=== PATIENT | female | born 1970 | race Caucasian/White ===

== ENCOUNTER → 2018-04-13 | Outpatient (CLI) | payer OTHER ==
[~2018-04-13] MED LIST: ACETAMINOPHEN-1 EAC1 PO; ASPIRIN EC325 M1; ASPIRIN EC325 M1 PO; ASPIRIN EC81 M1 PO; COLACE 100 MG100 MG PO; FLEXERIL PO; IBUPROFEN 800800 M1 PO; KEFLEX500 MG PO; LEVOXYL200 MCG; LEVOXYL25 MCG PO; NOHOMEMEDICATIONS; NORCO 5-325 TA1 EACH PO; NUCYNTA100 MG PO; NUCYNTA50 MG PO; PREDNISONE 10 M10 MG PO; ULTRAM 50MG TAB50 MG PO; XARELTO10 M1 PO; ZANTAC 7575 MG PO; [UNRECOGNIZED DRUG - OTHER]
== END ==
LOC: M.MRI 04-07 07:39
DX: M51.04 Intervertebral disc disorders with myelopathy, thoracic region (principal); M50.00 Cervical disc disorder with myelopathy, unspecified cervical region; M51.16 Intervertebral disc disorders with radiculopathy, lumbar region; R20.2 Paresthesia of skin; M25.78 Osteophyte, vertebrae; M51.06 Intervertebral disc disorders with myelopathy, lumbar region; E03.9 Hypothyroidism, unspecified; V89.2XXA Person injured in unspecified motor-vehicle accident, traffic, initial encounter

== ENCOUNTER → 2018-04-16 | Outpatient (CLI) | payer OTHER | LOC: M.MRI 08:00 | DX: M50.00 Cervical disc disorder with myelopathy, unspecified cervical region (principal); M51.16 Intervertebral disc disorders with radiculopathy, lumbar region; M51.04 Intervertebral disc disorders with myelopathy, thoracic region; E03.9 Hypothyroidism, unspecified; V28.9XXA Unspecified motorcycle rider injured in noncollision transport accident in traffic accident, initial encounter ==

== ENCOUNTER → 2019-04-06 | Outpatient (CLI) | payer OTHER | LOC: M.MRI 03-29 08:55 → M.NUC 10:31 → M.MRI 11:30 | DX: M25.561 Pain in right knee (principal); R60.0 Localized edema; Z96.651 Presence of right artificial knee joint ==

== ENCOUNTER → 2019-04-11 | Outpatient (CLI) | payer OTHER | LOC: M.MRI 17:12 | DX: M50.00 Cervical disc disorder with myelopathy, unspecified cervical region (principal); M40.292 Other kyphosis, cervical region ==

== ENCOUNTER → 2019-09-13 | Outpatient (CLI) | payer OTHER | LOC: M.CT 08:05 | DX: R10.9 Unspecified abdominal pain (principal) ==

== ENCOUNTER → 2020-03-07 | Outpatient (CLI) | payer OTHER ==
[~2020-03-07] MED LIST changes: +AMARYL2 MG PO; +BISOPROLOL-HCT1 EAC2 PO; +EUTHYROX88 MCG PO; +METFORMIN HCL500 MG PO; +SIMVASTATIN40 MG PO
[2020-03-07 12:35] LABS: ABSOLUTE BASOPHILS 0.1 thou/uL (0.0-0.2); ABSOLUTE EOSINOPHILS 0.1 thou/uL (0.0-0.7); ABSOLUTE LYMPHOCYTES 2.1 thou/uL (0.8-5.3); ABSOLUTE MONOCYTES 0.6 thou/uL (0.0-1.2); ABSOLUTE NEUTROPHILS 7.6 thou/uL (1.6-8.1); BASOPHILS 0.9 %; EOSINOPHILS 1.3 %; HEMATOCRIT 41.3 % (37.0-47.0); LYMPHOCYTES 19.5 %; MCH 28.6 pg (26.0-34.0); MCHC 33.9 g/dL (28.0-37.0); MCV 84.3 fL (80.0-100.0); MONOCYTES 6.1 %; MPV 7.3 fl. (7.2-11.1); NUCLEATED RBCS 0 /100WBC; PLATELET COUNT* 330 thou/uL (150-400); POLYS 72.2 %; RDW-CV 14.6 % (10.5-14.5); WBC 10.5 thou/uL (4.0-11.0)
[2020-03-07 12:49] LABS: APTT 24.9 Seconds (25.0-31.3); PROTIME 10.3 Seconds (9.20-11.50)
[2020-03-07 13:26] LABS: ALBUMIN 3.5 g/dL (3.4-5.0); CALCIUM 8.6 mg/dL (8.5-10.1); CREATININE 0.9 mg/dL (0.6-1.3); POTASSIUM 3.7 mmol/L (3.5-5.1); TOTAL BILIRUBIN 0.6 mg/dL (<0.1-1.0); TOTAL PROTEIN 7.8 g/dL (6.4-8.2)
[2020-03-07 13:46] LABS: ESR (SEDRATE) 17 mm/hr (0-30)
[2020-03-08 04:06] LABS: GLYCOHEMOGLOBIN (HGB A1C) 7.8 % (4.8-5.6)
--- NOTE | 2020-03-08 12:19 | EKG ---
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
== END ==
LOC: M.LAB 11:52
PROVIDERS: ATTEND Orthopaedic Surgery
DX: Z01.818 Encounter for other preprocedural examination (principal); Z01.812 Encounter for preprocedural laboratory examination; U07.1 COVID-19; M24.661 Ankylosis, right knee

== ENCOUNTER 2020-04-21 16:18 | Emergency (ER) | payer OTHER ==
[~2020-04-21] VITALS: Ht 154.9 cm; Wt 99.8 kg
[2020-04-21 17:02] LABS: ABSOLUTE BASOPHILS 0.1 thou/uL (0.0-0.2); ABSOLUTE EOSINOPHILS 0.3 thou/uL (0.0-0.7); ABSOLUTE LYMPHOCYTES 2.9 thou/uL (0.8-5.3); ABSOLUTE MONOCYTES 0.8 thou/uL (0.0-1.2); ABSOLUTE NEUTROPHILS 5.1 thou/uL (1.6-8.1); BASOPHILS 1.3 %; EOSINOPHILS 2.9 %; HEMATOCRIT 40.7 % (37.0-47.0); HEMOGLOBIN 13.8 gm/dL (12.0-15.0); LYMPHOCYTES 31.2 %; MCH 28.5 pg (26.0-34.0); MCV 83.9 fL (80.0-100.0); MONOCYTES 8.8 %; MPV 7.4 fl. (7.2-11.1); NUCLEATED RBCS 0 /100WBC; PLATELET COUNT* 326 thou/uL (150-400); POLYS 55.8 %; RBC 4.85 mil/uL (4.20-5.00); RDW-CV 14.6 % (10.5-14.5); WBC 9.2 thou/uL (4.0-11.0)
[2020-04-21 17:25] LABS: CALCIUM 9.4 mg/dL (8.5-10.1); CREATININE 0.9 mg/dL (0.6-1.3); POTASSIUM 4.1 mmol/L (3.5-5.1)
[2020-04-21 17:29] LABS: ALBUMIN 3.9 g/dL (3.4-5.0); TOTAL BILIRUBIN 0.4 mg/dL (<0.1-1.0); TOTAL PROTEIN 7.3 g/dL (6.4-8.2)
[2020-04-21] MEDS ORDERED: NORCO 5-325 TA1 EAC2 PO (17:32)
[2020-04-21] MEDS ORDERED: TRAMADOL 50 MG50 MG PO (17:49)
[2020-04-21 18:04] VITALS: BP 146/86
--- NOTE | 2020-04-22 12:13 | EKG ---
[place] [address] ELECTROCARDIOGRAM REPORT Name: JOSE BONDS Room: [facility]#: [id number] Admission: 04/21/20 Attend Phys: Discharge: 04/21/20 Date of : 68 Date of Service: 04/21/20 1638 Report #: [id number] THIS REPORT FOR: //name// [facility] ED Test Date: 2020-04-21 Test Time: 16:38:52 Pat Name: JOSE BONDS Department: Room: Gender: F Billing Customer Service Representative: ANTONIO : 1970 Requested By: Sophie Khanna Order Number: [id number] MD: Chilo Dang Measurements Intervals [place] Rate: 88 P: 19 LA: 136 QRS: 23 QRSD: 83 T: 114 QT: 373 QTc: 452 Interpretive Statements Sinus rhythm Probable left atrial enlargement Nonspecific T abnormalities, lateral leads Compared to ECG 05/16/2013 10:49:14 T-wave abnormality now present Left ventricular hypertrophy no longer present Electronically Signed On 04-22-2020 12:13:33 CDT by Chilo Dang [email or web address] <ELECTRONICALLY SIGNED> By: Chilo Dang MD, FAC 04/22/20 1213 1638 1638 Chilo Dang MD, LOCATED WITHIN [facility] /EPI
== END 2020-04-21 18:04 | disposition home or self-care (01) ==
LOC: M.ERS 16:18
PROVIDERS: Physician Assistant
DX: M25.511 Pain in right shoulder (principal); E03.9 Hypothyroidism, unspecified; E11.9 Type 2 diabetes mellitus without complications; E78.00 Pure hypercholesterolemia, unspecified; I10 Essential (primary) hypertension; G89.29 Other chronic pain; Z98.890 Other specified postprocedural states; Z96.651 Presence of right artificial knee joint; Z90.49 Acquired absence of other specified parts of digestive tract; Z88.5 Allergy status to narcotic agent; Z88.6 Allergy status to analgesic agent; Z88.8 Allergy status to other drugs, medicaments and biological substances

== ENCOUNTER → 2020-04-24 | Outpatient (CLI) | payer OTHER ==
[~2020-04-24] MED LIST changes: +NORCO 5-325 TA1 EAC2 PO; +TRAMADOL 50 MG50 MG PO
[2020-04-24 10:11] LABS: ABSOLUTE BASOPHILS 0.1 thou/uL (0.0-0.2); ABSOLUTE EOSINOPHILS 0.3 thou/uL (0.0-0.7); ABSOLUTE LYMPHOCYTES 1.5 thou/uL (0.8-5.3); ABSOLUTE MONOCYTES 0.5 thou/uL (0.0-1.2); EOSINOPHILS 3.7 %; HEMATOCRIT 38.4 % (37.0-47.0); HEMOGLOBIN 12.8 gm/dL (12.0-15.0); LYMPHOCYTES 20.5 %; MCH 28.2 pg (26.0-34.0); MCHC 33.5 g/dL (28.0-37.0); MCV 84.4 fL (80.0-100.0); MONOCYTES 6.5 %; MPV 7.2 fl. (7.2-11.1); NUCLEATED RBCS 0 /100WBC; PLATELET COUNT* 274 thou/uL (150-400); POLYS 68.3 %; RBC 4.55 mil/uL (4.20-5.00); RDW-CV 14.9 % (10.5-14.5); WBC 7.4 thou/uL (4.0-11.0)
[2020-04-24 10:17] LABS: APTT 26.6 Seconds (25.0-31.3); INR 0.9; PROTIME 9.7 Seconds (9.20-11.50)
[2020-04-24 11:14] LABS: ESR (SEDRATE) 28 mm/hr (0-30)
[2020-04-24 12:05] LABS: ALBUMIN 3.6 g/dL (3.4-5.0); CALCIUM 8.3 mg/dL (8.5-10.1); CREATININE 0.7 mg/dL (0.6-1.3); POTASSIUM 3.6 mmol/L (3.5-5.1); TOTAL BILIRUBIN 0.5 mg/dL (<0.1-1.0); TOTAL PROTEIN 7.2 g/dL (6.4-8.2)
== END ==
LOC: M.LAB 09:36
PROVIDERS: ATTEND Orthopaedic Surgery
DX: Z01.812 Encounter for preprocedural laboratory examination (principal); Z20.828 Contact with and (suspected) exposure to other viral communicable diseases; M24.661 Ankylosis, right knee

== ENCOUNTER → 2020-04-26 | Outpatient (CLI) | payer OTHER ==
[~2020-04-26] MED LIST changes: +ELIQUIS5 MG PO; +HYDROCODON-ACE1 EAC7 PO
[2020-04-26 23:06] LABS: GLYCOHEMOGLOBIN (HGB A1C) 7.3 % (4.8-5.6)
== END ==
LOC: M.LAB 10:18
PROVIDERS: ATTEND Physician Assistant
DX: M75.01 Adhesive capsulitis of right shoulder (principal); M75.31 Calcific tendinitis of right shoulder

== ENCOUNTER 2020-04-30 10:58 | Observation (INO) | payer OTHER ==
[~2020-04-30] VITALS: Ht 154.9 cm; Wt 99.8 kg
[~2020-04-30 10:58] MED LIST changes: -ELIQUIS5 MG PO; -HYDROCODON-ACE1 EAC7 PO
[2020-04-30 14:15] VITALS: BP 142/88
[2020-04-30 18:52] VITALS: BP 163/80
[2020-04-30 20:00] VITALS: BP 134/84
[2020-05-01] VITALS (7 sets, daily range): BP systolic 130–140; BP diastolic 62–80
[2020-05-01 04:01] LABS: HEMATOCRIT 35.3 % (37.0-47.0); HEMOGLOBIN 11.7 gm/dL (12.0-15.0)
[2020-05-01] MEDS ORDERED: HYDROCODON-ACE1 EAC7 PO (07:56)
[2020-05-01] MEDS ORDERED: ELIQUIS5 MG PO (07:56)
--- NOTE | 2020-05-01 10:44 | OP ---
[address] [address] OPERATIVE REPORT Name: JOSE BONDS Room: [address] M[address]R.#: [id number] Admission: 04/30/20 Attend Phys: Martin Khan Discharge: Date of : 68 Report #: [id number] THIS REPORT FOR: //name// cc: Yuniel Rubio MD, Ram MD ~ CC: Yuniel Beltre DICTATED BY: Aurelio Bueno DO DATE OF SERVICE: 04/30/2020 PREOPERATIVE DIAGNOSIS: Arthrofibrosis, right knee, status post right total knee in 2012. POSTOPERATIVE DIAGNOSIS: Arthrofibrosis, right knee, status post right total knee in 2012. PROCEDURE PERFORMED: Right knee arthrotomy with extensive synovectomy and revision total knee (patella and polyethylene liner) with Biomet Vanguard system with the following components: 1. A 10 mm PS plus tibial bearing. 2. A 31 mm asymmetric patella. 3. One bag of Biomet bone cement. SURGEON: Tyson Kitchen DO WATER MANGLE TENDER: Sheyla Doe PA-C; Aurelio Bueno DO; Lillie Kitchen DO ANESTHESIA: General with peripheral nerve block by Anesthesia. ESTIMATED BLOOD LOSS: 100 mL. SPECIMENS: None. COMPLICATIONS: None. DISPOSITION: Stable to PACU. ANTIBIOTICS: 2 g IV Ancef preop. TOURNIQUET: 45 minutes at 300 mmHg. INDICATIONS FOR SURGERY: The patient is a 49-year-old female who underwent right total knee arthroplasty in 2012. Since that time, she has had difficulty with range of motion. She has undergone [place] [address] OPERATIVE REPORT Name: JOSE BONDS Room: [address] Estrella Brandon#: [id number] Admission: 04/30/20 Attend Phys: Martin Khan Discharge: Date of : 68 Report #: [id number] CHANEL interview an arthroscopy with a synovectomy. Despite this, she continues to have poor range of motion, which is limiting her function and causing her significant pain. On exam in clinic, her range of motion was approximately 0-30. Infectious workup was negative. She is here today for revision total knee with synovectomy. DESCRIPTION OF PROCEDURE: The patient was seen in the preoperative area. Written consent was obtained. Operative site was marked. The patient brought back to the operative suite, placed supine on a well-padded operative table. Patient was given benefit of general anesthesia. A well-padded pneumatic tourniquet was placed on the right proximal thigh. Right lower extremity was prepped and draped in normal sterile fashion. A surgical timeout was performed where the correct site, side, procedure were verified. All the present OR personnel were in agreement. Under anesthetic, her range of motion was still a couple degrees shy of full extension to only 30 degrees of flexion. This was with a firm endpoint. The procedure began with inflation of tourniquet at 300 mmHg after Esmarch exsanguination. We began by excising the previous scar with a knife down to the subcutaneous fat. We then developed the plane of the extensor mechanism. After good visualization, we created a standard medial parapatellar arthrotomy. Created a medial capsular sleeve. We released laterally in order to sublux patellar component laterally. We then performed an extensive synovectomy with the Bovie ensuring to protect the capsular layer as well as the extensor mechanism. This was done throughout the joint. At this point, the knee was able to get to about 70 degrees of flexion. We removed the previous polyethylene component and debrided around the posterior capsule, being careful not to disturb the neurovascular structures. We inserted a smaller poly, 10 mm. This allowed us to flex the knee to about 100. We continued to release soft tissues around the joint as well as slightly lengthen the quadriceps tendon. We then decided to remove the polyethylene component, which was done so with the saw. We removed all the remaining cement. We then sized and re-drilled for another 31 patella. After the trial patellar component was in placed, the knee achieved approximately 120 degrees of flexion. At this point, we were satisfied with the results. We thoroughly irrigated the knee. We inserted the final 10 mm PS plus ArCom poly. The locking bar was inserted. We again thoroughly irrigated the knee. We prepped the patella for the final component, which was a 31 asymmetric. This was held into place in standard fashion. Excess cement was removed. After the cement hardened, the knee was again taken through range of motion. Intraoperatively, she was 0-120. We brought the knee up into deep flexion and closed the capsular tissue in order to prevent shortening of the extensor mechanism. This was done with #1 Vicryl in pikext-pi-deunl fashion, reinforced with a running #1 Stratafix. After the capsular closure, the knee still achieved 120 degrees of flexion and we took clinical pictures of this. The subcutaneous tissue was thoroughly irrigated. Orthopedic cocktail was injected throughout the surgical site. The subcutaneous layer was closed with [address] [address] OPERATIVE REPORT Name: JOSE BONDS Room: [address] EricaChris#: [id number] Admission: 04/30/20 Attend Phys: Martin Khan Discharge: Date of : 68 Report #: [id number] 2-0 Monocryl in a simple inverted interrupted fashion. The skin was reapproximated with a running 3-0 Stratafix. Dermabond skin glue was applied. Mepilex was placed. The patient was awoken from anesthesia and transferred to PACU in stable condition. There were no obvious complications. Needle and sponge counts correct x 2. Dr. Kitchen was present for all critical aspects of the case. <ELECTRONICALLY SIGNED> By: Stanley Zheng DO 05/01/20 1044 1721 1858Tyson Kitchen DO /eduarda
== END 2020-05-01 15:25 | disposition home or self-care (01) ==
LOC: M.TBA → EDSTATUS 11:43 → M.TBA 12:51 → M.ORTHSURG 12:51
PROVIDERS: Orthopaedic Surgery; ADMIT Internal Medicine; ATTEND Internal Medicine
DX: M17.11 Unilateral primary osteoarthritis, right knee (principal); M24.661 Ankylosis, right knee; I10 Essential (primary) hypertension; E78.00 Pure hypercholesterolemia, unspecified; E11.9 Type 2 diabetes mellitus without complications; E78.5 Hyperlipidemia, unspecified; E03.9 Hypothyroidism, unspecified; E66.01 Morbid (severe) obesity due to excess calories; Z68.41 Body mass index [BMI] 40.0-44.9, adult; Z96.651 Presence of right artificial knee joint

== ENCOUNTER → 2020-06-21 | Outpatient (CLI) | payer OTHER ==
[~2020-06-21] MED LIST changes: +ELIQUIS5 MG PO; +HYDROCODON-ACE1 EAC7 PO
== END ==
LOC: M.LAB 13:41
PROVIDERS: ATTEND Orthopaedic Surgery
DX: Z20.828 Contact with and (suspected) exposure to other viral communicable diseases (principal); Z47.1 Aftercare following joint replacement surgery; Z96.651 Presence of right artificial knee joint

== ENCOUNTER → 2020-12-10 | Outpatient (CLI) | payer OTHER | LOC: M.RAD 09:37 | PROVIDERS: ATTEND Family Medicine | DX: Z12.31 Encounter for screening mammogram for malignant neoplasm of breast (principal); N64.89 Other specified disorders of breast ==